=== PATIENT | female | born 2000 | race Caucasian/White ===

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

== ENCOUNTER 2019-05-10 19:19 | Outpatient (CLI) | payer MEDICAID ==
[~2019-05-10] VITALS: Ht 162.6 cm; Wt 116.4 kg
[~2019-05-10 19:19] MED LIST changes: +CALC600T24 PO; +FOL8 PO; +PRENAT PO
[2019-05-10 20:45] VITALS: BP 124/77; PULSE 96; RESP 20; Ht 162.6 cm; Wt 116.4 kg
--- NOTE | 2019-05-11 00:25 | TRIAGE ---
OB Triage Datetime Report Generated by CPN: 05/11/2019 00:25 Datetime: 05/10/2019 21:38 Vaginal Exam Dilatation (cms): 1.0 Effacement (%): 40 Station: -3 Exam By: LOTTIE Membrane Status: Intact Vaginal Bleeding: None Cervix, Consistency: Firm Cervix, Position: Posterior Presentation 'A': Cephalic Datetime: 05/10/2019 20:55 Labor Evaluation Frequency: 0 Monitor Mode: External Resting Tone [place]: Relaxed Heart Rate FHR Baseline Rate: 130 Monitor Mode: External US Variability: Moderate 6-25 bpm Accelerations: 15X15 Decelerations: None Category: Category I Datetime: 05/10/2019 20:39 Assessment Type: Triage Maternal Assessment Level of Consciousness: Keenly Alert, Responsive Maternal Assessment Level of Consciousness: Keenly Alert, Responsive DTR's/Clonus: DTRs 2+; No Clonus Headache: Denies Headache: Denies Blurred Vision: No Blurred Vision: No Respiratory Effort: Unlabored; Regular Rhythm; Equal Expansion Breath Sounds, Left: Clear and Equal Breath Sounds, Right: Clear and Equal Nausea/Vomiting: Denies Nausea/Vomiting: Denies RUQ Epigastric Pain: Denies RUQ Epigastric Pain: Denies Lower Extremities Edema: None Degree: None Upper Extremities Edema: None Degree: None Facial Edema: None Facial Edema: None Fall Risk Assessment History of Falling: (0) No Secondary Diagnosis: (0) No Ambulatory Aid: (0) Bedrest/Nurse Assist IV Therapy: (0) No Gait: (0) Normal/Bedrest/Immobile Mental Status: (0) Oriented to Own Ability Fall Score: 0 Fall Risk Score Definition: No Risk: No action required Datetime: 05/10/2019 20:25 Time of Arrival: 05/10/2019 19:05 EGA: 37.2 Arrived By: Ambulatory Arrived From: Office Chief Complaint: SENT IN FR THE CLINIC FOR LABOR EVAL AFTER C/O UCS OVER THE WEEKEND. DENIES ANY PA IN OR UCS AT THIS MOMENT AND STATES POSITIVE FM Movement: Present Contractions: Denies/Absent Rupture of Membranes: Denies Vaginal Bleeding: None Vaginal Discharge: Denies Recent Sexual Intercouse: Denies Abdominal Trauma: Not Applicable Patient Complaints: None Time Provider Notified: 05/10/2019 20:24 Provider Notified: ZAHRA Initial Plan: ART ALEXANDRE
--- NOTE | 2019-05-11 02:19 | PN ---
Triage Information Date/Time Reason for visit: Follow-up of previous admission Weeks of Gestation 37 weeks and 3 days /Para -0-0-1 Diabetes: none Hypertention: none Objective Vital Signs Date Temp Pulse Resp B/P (MAP) Pulse Ox O2 O2 Flow FiO2 Time Delivery Rate 05/10/19 98.0 96 20 124/77 Room Air 20:45 (93) Heart Rate: 140's Contractions: None Results/Medications Results 24 hrs Laboratory Tests Test 05/10/19 20:20 Urine Color YELLOW Urine Clarity CLEAR Urine pH 6.0 Urine Specific [place] 1.009 Urine Ketones TRACE A Urine Nitrite NEGATIVE Urine Bilirubin NEGATIVE Urine Urobilinogen NEGATIVE Urine Leukocyte Esterase TRACE A Urine Microscopic RBC 0 Urine Microscopic WBC 2 Urine Squamous Epithelial Cells FEW Urine Bacteria FEW A Urine Hemoglobin NEGATIVE Urine Glucose NEGATIVE Urine Total Protein NEGATIVE Disposition: Discharge Assessment/Plan 19 years old 2 para 1-0-0-1 with single intrauterine at 37 weeks and 3 days came to triage 3 days ago with complaint of uterine contractions, sent home in stable condition when she has no further uterine contraction. She came back today as ordered at the time of discharge She states good movement. She denies nausea, vomiting, shortness of breath, chest pain, headache, visual changes, vaginal bleeding or LOF. -FHR: No sign of metabolic acidosis- Category I -Contractions: None -SVE: /-3/ceph/intact -Ultrasound performed 3 days ago, normal CLARITA, BPP 8 out of 8 -Symptoms and sign of labor, preeclampsia, kick count discussed with patient, she voiced understanding. All of her questions answered. -Patient was discharged home in stable condition with the appropriate discharge instructions provided. I would like patient to have close follow-up with her primary physician or outpatient clinic in 1-2 days or return to triage for worsening symptoms or any other urgent concerns. PHU KEE May 11, 2019 02:19
== END 2019-05-11 00:15 | disposition home or self-care (01) ==
LOC: OBT 19:19 → L-D 19:22 → OBT 05-11 00:15
PROVIDERS: ATTEND Obstetrics & Gynecology
DX: O62.9 Abnormality of forces of labor, unspecified (principal); Z3A.37 37 weeks gestation of pregnancy
CPT/HCPCS: 76818; 81001; Z7500; G0463

== ENCOUNTER 2019-05-24 20:12 | Inpatient (IN) | payer MEDICAID ==
[~2019-05-24] VITALS: Ht 162.6 cm; Wt 118.0 kg
[2019-05-24 20:26] VITALS: Ht 162.6 cm; Wt 118.0 kg
[2019-05-24 20:27] VITALS: BP 127/81; PULSE 112; RESP 20
[2019-05-24] MEDS ORDERED: LACTATED RINGER'S 1,000 ML IV PRN (20:44)
[2019-05-24] MEDS ORDERED: LACTATED RINGER'S 1,000 ML IV SCH (20:44)
[2019-05-24] MEDS ORDERED: OXYTOCIN 30 UNITS/LR 500 ML IV SCH ×3 (21:00)
[2019-05-24] MEDS ORDERED: OXYTOCIN 30 UNITS/LR 500 ML IV PRN (21:00)
[2019-05-24] MEDS ORDERED: CARBOPROST 250 MCG INJ IM PRN (21:00)
[2019-05-24] MEDS ORDERED: LIDOCAINE 1% (MPF) 30 ML INJ INJ PRN (21:00)
[2019-05-24] MEDS ORDERED: BUTORPHANOL 2 MG INJ IV PRN (21:00)
[2019-05-24] MEDS ORDERED: MISOPROSTOL 200 MCG TAB PR PRN (21:00)
[2019-05-24] MEDS ORDERED: METHYLERGONOVINE 0.2 MG INJ IM PRN (21:00)
[2019-05-24] MEDS ORDERED: IBUPROFEN 600 MG TAB PO PRN (21:00)
--- NOTE | 2019-05-24 21:59 | HP ---
Date/Time of Note Date/Time of Note DATE: 05/24/19 TIME: 21:57 OB - History Hx of Present Chief Complaint: contractions Estimated Due Date: May 29, 2019 : 2 Para: 1 Spontaneous : 0 Therapeutic : 0 Care: Good Care Ultrasounds: Normal mid trimester US Obstetrical Complications: None Medical Complications: None Past Family/Social History * Past Medical, Surgical, Family and Obstetric Histories reviewed from chart. GBS Status: Negative OB Admission Exam Vital Signs Vital Signs Vital Signs Date Temp Pulse Resp B/P (MAP) Pulse Ox O2 O2 Flow FiO2 Time Delivery Rate 05/24/19 98.4 112 20 127/81 Room Air 20:27 (96) Physical Exam HEENT: WNL Heart: Rhythm Normal Lungs: Clear, Equal Abdomen: WNL Extremities: Normal Reflexes: Normal Cervical Dilatation: 5cm Effacement: 75% Station: -1 Membranes: Intact Heart Rate: 120's Accelerations: Accelerations Present Decelerations: No Decelerations Varibility: Moderate OB Assessment/Plan Reason for admission: active labor Plan: Expectant Management JOSE SWEENEY MD May 24, 2019 21:59
[2019-05-25] MEDS ORDERED: MINERAL OIL LIGHT 10 ML VIAL TOP ONE
--- NOTE | 2019-05-25 01:13 | TRIAGE ---
OB Triage Datetime Report Generated by CPN: 05/25/2019 01:12 Datetime: 05/25/2019 00:30 Labor Evaluation Frequency: 2-6 Monitor Mode: External Duration (sec)2399: 50-120 Pattern: Normal: <= 5 Contractions in 10 Minutes Heart Rate FHR Baseline Rate: 145 Monitor Mode: External US Variability: Moderate 6-25 bpm Accelerations: 15X15 Decelerations: None Category: Category I Datetime: 05/25/2019 00:00 Labor Evaluation Frequency: 3-7 Monitor Mode: External Duration (sec)2399: 60-90 Pattern: Normal: <= 5 Contractions in 10 Minutes Heart Rate FHR Baseline Rate: 145 Monitor Mode: External US Variability: Moderate 6-25 bpm Accelerations: 15X15 Decelerations: None Category: Category I Datetime: 05/24/2019 23:51 Vaginal Exam Dilatation (cms): 5.0 Exam By: DR. SWEENEY Membrane Status: Ruptured Membranes Rupture Method: Artificial Amniotic Fluid Color: Clear Amniotic Fluid Amount: Moderate Datetime: 05/24/2019 23:10 Assessment Type: Admission Assessment Vaginal Bleeding: Normal Show Maternal Assessment Level of Consciousness: Keenly Alert, Responsive DTR's/Clonus: DTRs 2+; No Clonus Headache: Denies Blurred Vision: No Respiratory Effort: Unlabored; Regular Rhythm; Equal Expansion Breath Sounds, Left: Clear and Equal Breath Sounds, Right: Clear and Equal Nausea/Vomiting: Denies RUQ Epigastric Pain: Denies Lower Extremities Edema: Bilateral Lower Extremities Degree: 1+ Upper Extremities Edema: None Degree: None Facial Edema: None Fall Risk Assessment History of Falling: (0) No Secondary Diagnosis: (0) No Ambulatory Aid: (0) Bedrest/Nurse Assist IV Therapy: (20) Yes Gait: (0) Normal/Bedrest/Immobile Mental Status: (0) Oriented to Own Ability Fall Score: 20 Fall Risk Score Definition: No Risk: No action required Pain Assessment Pain Scale: 5 Pain Presence: Intermittent Pain Type: Contraction Pain Location: Abdomen; Back Pain Goal: 0 Membrane Status: Intact Datetime: 05/24/2019 22:57 Stage of : Labor Labor Evaluation Frequency: Irregular Monitor Mode: External Duration (sec)4149: 40-80 Quality: Mild Pattern: Normal: <= 5 Contractions in 10 Minutes Resting Tone [place]: Relaxed Heart Rate FHR Baseline Rate: 145 Monitor Mode: External US FHR Baseline Changes: No Baseline Change Variability: Moderate 6-25 bpm Accelerations: 15X15 Decelerations: None Category: Category I Datetime: 05/24/2019 22:50 Stage of : OB Triage Datetime: 05/24/2019 22:00 Stage of : Labor Labor Evaluation Frequency: Irregular Monitor Mode: External Duration (sec)2399: 60-110 Quality: Mild Pattern: Normal: <= 5 Contractions in 10 Minutes Resting Tone [place]: Relaxed Heart Rate FHR Baseline Rate: 145 Monitor Mode: External US Variability: Moderate 6-25 bpm Accelerations: 15X15 Decelerations: None Category: Category I Datetime: 05/24/2019 21:00 Stage of : Labor Labor Evaluation Frequency: Irregular Monitor Mode: External Duration (sec)2399: 60-130 Quality: Mild Pattern: Normal: <= 5 Contractions in 10 Minutes Resting Tone [place]: Relaxed Heart Rate FHR Baseline Rate: 150 Monitor Mode: External US Variability: Moderate 6-25 bpm Accelerations: 15X15 Decelerations: Late Category: Category II Datetime: 05/24/2019 20:37 Vaginal Exam Dilatation (cms): 5.0 Effacement (%): 70 Station: -1 Exam By: Membrane Status: Intact Vaginal Bleeding: None Datetime: 05/24/2019 20:19 Stage of : OB Triage Assessment Type: Triage Maternal Assessment Level of Consciousness: Keenly Alert, Responsive DTR's/Clonus: DTRs 2+; No Clonus Headache: Denies Blurred Vision: No Respiratory Effort: Unlabored; Regular Rhythm; Equal Expansion Breath Sounds, Left: Clear and Equal Breath Sounds, Right: Clear and Equal Nausea/Vomiting: Denies RUQ Epigastric Pain: Denies Lower Extremities Edema: Bilateral Lower Extremities Degree: 1+ Upper Extremities Edema: None Degree: None Facial Edema: None Temperature Route: Oral Fall Risk Assessment History of Falling: (0) No Secondary Diagnosis: (0) No Ambulatory Aid: (0) Bedrest/Nurse Assist IV Therapy: (0) No Gait: (0) Normal/Bedrest/Immobile Mental Status: (0) Oriented to Own Ability Fall Score: 0 Fall Risk Score Definition: No Risk: No action required Pain Assessment Pain Scale: 2 Pain Presence: Intermittent Pain Type: Cramping Pain Location: Abdomen; Back Pain Relief Measures: Comfort Measures Datetime: 05/24/2019 20:18 Monitor Mode: External Contraction Comments: [place] applied Heart Rate FHR Baseline Rate: 150 Monitor Mode: External US Comments: EFM applied Datetime: 05/24/2019 20:17 Time of Arrival: 05/24/2019 20:00 EGA: 39.2 Arrived By: Ambulatory Arrived From: Office Chief Complaint: Sent from clinic - 4cm Movement: Present Contractions: Irregular Contractions: [id number] Rupture of Membranes: Denies Vaginal Bleeding: None Vaginal Discharge: Denies Abdominal Trauma: Not Applicable Patient Complaints: Contractions; Cramping; Back Pain Initial Plan: Monitor, VE Datetime: 05/10/2019 20:39 Fall Score: 0 Fall Risk Score Definition: No Risk: No action required Datetime: 05/10/2019 20:25 EGA: 37.2
--- NOTE | 2019-05-25 02:06 | LDN ---
Date/Time of Note Date/Time of Note DATE: 05/25/19 TIME: 02:04 Delivery Summary Weeks of Gestation 39 weeks Placenta Delivered: Spontaneously Meconium: none Episiotomy: No Anesthesia type: None Estimated blood loss: 150 Sponge & Needle done & correct: Yes All needle counts correct: Yes Any foreign bodies felt in the: No Infant Delivery Information Sex Sex: male Apgars 1 Minute: 8 5 Minute: 9 Suctioning Nose & mouth suctioned at guera: No Delee suction performed: No Umbilical Cord Umbilical cord with: 3 Vessels Cord presentations: nuchal cord Nuchal cord present X: 1 Cord Blood was obtained: Yes Mother & Baby Disposition Disposition Mom & Baby to Maternity; Good: Yes JOSE SWEENEY MD May 25, 2019 02:06
[2019-05-25] MEDS ORDERED: OXYTOCIN 30 UNITS/LR 500 ML IV PRN (04:00)
[2019-05-25] MEDS ORDERED: ACETAMINOPHEN 325 MG TAB PO PRN (04:00)
[2019-05-25] MEDS ORDERED: METHYLERGONOVINE 0.2 MG INJ IM PRN (04:00)
[2019-05-25] MEDS ORDERED: MISOPROSTOL 200 MCG TAB PR PRN (04:00)
[2019-05-25] MEDS ORDERED: CARBOPROST 250 MCG INJ IM PRN (04:00)
[2019-05-25] MEDS ORDERED: HYDROCODONE/APAP (5/325) TAB PO PRN (04:00)
[2019-05-25] MEDS ORDERED: BENZOCAINE 20% 56 ML SPRAY TOP PRN (04:00)
[2019-05-25] MEDS ORDERED: DIBUCAINE 1% 30 GM OINT TOP PRN (04:00)
[2019-05-25] MEDS ORDERED: WITCH HAZEL/GLYCERIN PAD PR PRN (04:00)
[2019-05-25 04:45] VITALS: BP 130/67; PULSE 84; RESP 18
[2019-05-25 05:15] VITALS: BP 128/66; PULSE 72; RESP 18
[2019-05-25] MEDS: LACTATED RINGER'S 1,000 ML IV* SCH ×3 (05:30→22:22)
[2019-05-25] MEDS: IBUPROFEN 600 MG TAB PO SCH ×3 (06:00→17:23)
[2019-05-25 08:00] VITALS: BP_SYST 108; BP_SYST 114; BP_DIAS 58; BP_DIAS 85; PULSE 83; RESP 18
[2019-05-25] MEDS: SENNA/DOCUSATE NA (8.6MG/50MG) TAB PO SCH ×2 (08:36→21:00)
[2019-05-25] MEDS ORDERED: LANOLIN HPA 1 PKT TOP PRN (13:00)
[2019-05-25] MEDS: LANOLIN HPA 1 PKT TOP PRN (13:45)
[2019-05-25 17:06] VITALS: BP 117/64; PULSE 79; RESP 18
[2019-05-25 20:00] VITALS: BP 118/73; PULSE 88; RESP 18
[2019-05-26] MEDS: IBUPROFEN 600 MG TAB PO SCH ×5 (00:03→23:44)
[2019-05-26 03:17] VITALS: BP 114/74; PULSE 83; RESP 18
[2019-05-26] MEDS: LACTATED RINGER'S 1,000 ML IV* SCH (03:46)
[2019-05-26] MEDS: SENNA/DOCUSATE NA (8.6MG/50MG) TAB PO SCH ×2 (07:48→21:00)
[2019-05-26 08:05] VITALS: BP 109/64; PULSE 84; RESP 18
[2019-05-26 15:50] VITALS: BP 114/66; PULSE 90; RESP 20
--- NOTE | 2019-05-26 18:54 | DS ---
Date/Time of Note Date/Time of Note DATE: 05/26/19 TIME: 18:54 Obstetrical Discharge Record Final Diagnosis Final Diagnosis: Term delivered Vaginal Delivery Obstetrical Delivery: Spontaneous Condition on Discharge Physical Assessment Voiding: Yes Bowel Movement: Yes Breast: Soft, non-tender, Filling Fundus: Firm Calf Tenderness: No Patient Condition: Stable JOSE SWEENEY MD May 26, 2019 18:54
[2019-05-26 19:30] VITALS: BP 135/83; PULSE 83; RESP 19
[2019-05-27 04:00] VITALS: BP 119/77; PULSE 85; RESP 20
[2019-05-27] MEDS: IBUPROFEN 600 MG TAB PO SCH ×2 (05:49→11:31)
[2019-05-27] MEDS: SENNA/DOCUSATE NA (8.6MG/50MG) TAB PO SCH (07:37)
[2019-05-27 08:00] VITALS: BP 103/57; PULSE 84; RESP 16
[2019-05-27] MEDS ORDERED: DIPHTH/TET/ACEL PERTUSS (ADULT) 0.5 ML VIAL IM* ONE (09:00)
[2019-05-27] MEDS: LANOLIN HPA 1 PKT TOP PRN (11:23)
--- NOTE | 2019-05-28 18:17 | DELSUM ---
Delivery Summary A-C Datetime Report Generated by CPN: 05/28/2019 18:17 DELIVERY PERSONNEL Bar Ste[place]: [place], [place] MATERNAL INFORMATION Delivery Anesthesia: Local Medications in Delivery: LR WITH 30 UNITS OF PITOCIN Delivery QBL (ml): 150 Placenta Cultured: No Maternal Complications: None LABOR SUMMARY EDC: 05/29/2019 00:00 No. Babies in Womb: 1 Attempted: No Labor Anesthesia: IV Sedation LABOR INFORMATION Reason for Induction: Not Applicable Onset of Labor: 05/24/2019 00:00 Complete Dilatation: 05/25/2019 23:51 Group B Beta Strep: Negative Antibiotics # of Doses: 0 Steroids Given: None Reason Steroids Not Administered: Not Applicable MEMBRANES Membranes Rupture Method: Artificial Rupture of Membranes: 05/24/2019 23:51 Length of Rupture (hr): 1.97 Amniotic Fluid Color: Clear Amniotic Fluid Amount: Moderate Amniotic Fluid Odor: Normal STAGES OF LABOR Stage 1 hr: 47 Stage 1 min: 51 Stage 2 hr: -22 Stage 2 min: -2 Stage 3 hr: 0 Stage 3 min: 6 Total Time in Labor hr: 25 Total Time in Labor min: 55 VAGINAL DELIVERY Episiotomy: None Laceration Extension: N/A Laceration Type: None Laceration Repair: Yes Initial Vag Sponge Count: 10 Final Vag Sponge Count: 10 Initial Vag Sharps Count: 1 Final Vag Sharps Count: 1 Sponge Count Correct: Yes Sharps Count Correct: Yes BABY A INFORMATION Infant Delivery Date/Time: 05/25/2019 01:49 Method of Delivery: Vaginal Born in Route : No : N/A Forceps: N/A Vacuum Extraction: N/A Shoulder Dystocia : No SHOULDER DYSTOCIA BABY A Delivery Date/Time: 05/25/2019 01:49 PRESENTATION/POSITION BABY A Presentation: Cephalic Cephalic Presentation: Vertex Vertex Position: Left Occipital Anterior Breech Presentation: N/A PLACENTA INFORMATION BABY A Placenta Delivery Time : 05/25/2019 01:55 Placenta Method of Delivery: Spontaneous Placenta Status: Delivered SCORES BABY A Heart Rate 1 min: >100 bpm Resp Effort 1 min: Good Cry Reflex Irritability 1 min: Cough/Sneeze/Pulls Away Muscle Tone 1 min: Active Motion Color 1 min: Blue/Pale Resuscitation Effort 1 min: Tactile Stimulation SCORE 1 MIN: 8 Heart Rate 5 min: >100 bpm Resp Effort 5 min: Good Cry Reflex Irritability 5 min: Cough/Sneeze/Pulls Away Muscle Tone 5 min: Active Motion Color 5 min: Body [place], Extremit Blue Resuscitation Effort 5 min: Tactile Stimulation SCORE 5 MIN: 9 INFORMATION BABY A Gestational Age at Delivery: 39.3 Gestational Status: Full Term- 39- 40.6 Weeks Outcome : Liveborn, with signs of life Condition : Stable Sex: Male IDENTIFICATION/MEDS BABY A ID Band Number: [id number] ID Band Location: Right Leg; Left Arm Sensor Applied: Yes Sensor Number: [id number] Sensor Location : Cord Clamp Vitamin K Given : Not Given Erythromycin Given: Not Given WEIGHT/LENGTH BABY A Birthweight (gm): 4010 Infant Weight (lb): 8 Infant Weight (oz): 13 Length (in): 19.50 Length (cm): 49.53 CORD INFORMATION BABY A No. Cord Vessels: 3 Nuchal Cord : Around Neck x1, Loose Cord Blood Taken: Yes Suction: Mouth; Nose ASSESSMENT BABY A Infant Complications: None Physical Findings at Delivery: Bruising Infant Respirations: Appears Normal Internet Sales Consultant/ALS Called : No Infant Care By: Anisha CAMACHO Transferred To: Remains with Mother
== END 2019-05-27 18:17 | disposition home or self-care (01) | DRG 807 ==
LOC: OBT 20:12 → L-D 20:13 → OBT 20:44 → L-D 23:02 → PP1 05-25 03:44
PROVIDERS: ADMIT Obstetrics & Gynecology; ATTEND Obstetrics & Gynecology
PROC: 10E0XZZ Delivery of Products of Conception, External Approach (ICD-10-PCS; principal; 2019-05-25)
DX: O69.81X0 Labor and delivery complicated by cord around neck, without compression, not applicable or unspecified (principal); Z3A.39 39 weeks gestation of pregnancy; Z37.0 Single live birth
CPT/HCPCS: 36415; 85025; 85610; 85730; 86592; 86850; 86900; 86901; 87340; G0463; J0595; J2590; J7120